=== PATIENT | male | born 1960 | race Caucasian/White ===

== ENCOUNTER 2022-01-18 08:20 | Day surgery (SDC) | payer MEDICARE ==
[2022-01-18] MEDS ORDERED: Lactated Ringers 1,000 ML IV SCH (09:00)
[2022-01-18] MEDS ORDERED: Lactated Ringers 1,000 ML IV ONE (09:12)
[2022-01-18] MEDS ORDERED: Sodium Chloride 3 ML UD NEBULES IH ONE (09:46)
[2022-01-18] MEDS ORDERED: Xopenex 1.25 MG/0.5 ML UD NEBULE IH ONE ×2 (09:46→09:59)
[2022-01-18] MEDS ORDERED: DIPRIVAN 200 MG/20 ML IV ONE ×2 (09:59→10:32)
[2022-01-18] MEDS ORDERED: Versed 2 MG/2 ML Injection ONE (09:59)
[2022-01-18] MEDS ORDERED: Xylocaine-Mpf 2% 5 Ml Vial ONE (09:59)
[2022-01-18] MEDS ORDERED: Sodium Chloride 3 ML UD NEBULES IH SCH (10:00)
[2022-01-18] MEDS ORDERED: GlucaGen 1 MG ONE (10:28)
[2022-01-18 11:37] VITALS: BP 125/80; PULSE 67; O2SAT 96
--- NOTE | 2022-01-18 13:38 | OP ---
SURGERY DATE/TIME: 01/18/2022 1015 PREOPERATIVE DIAGNOSES: 1) Abdominal pain. 2) Diarrhea. 3) Dysphagia. 4) Change in bowel movements. POSTOPERATIVE DIAGNOSES: 1) Grade II/IV gastroesophageal reflux disease. 2) Mild antritis. 3) Moderate internal hemorrhoids. 4) Moderate sigmoid diverticulosis. 5) Rectal polyp 8 mm. PROCEDURES: 1) EGD with cold biopsy of antrum. 2) Colonoscopy complete to cecum. 3) Hot polypectomy of rectal polyp. SURGEON: Otis Quintana M.D. CIGARETTE CATCHER: Joelle Butler, medical student III. ANESTHESIA: MAC. COMPLICATIONS: None. CONDITION: Stable. INDICATION: A patient with above indications. DESCRIPTION OF PROCEDURE: Patient taken to endoscopy. Left lateral decubitus position. Scope introduced. Pharyngoesophageal junction satisfactory. Esophagus normal down to gastroesophageal junction, grade II/IV gastroesophageal reflux disease. No hiatal hernia. Fundus, body normal. Antrum mild antritis. Press Manager cold biopsy. Pylorus. duodenal bulb, second portion satisfactory. The scope withdrawn looped upon itself. No hiatal hernia. Anal digital examination satisfactory. Prostate satisfactory. Scope advanced to the cecum. Moderate internal hemorrhoids. Rectum was normal. Sigmoid moderate diverticulosis. Scope advanced to the cecum. Base of the cecum satisfactory. Appendiceal orifice not seen. Ileocecal valve satisfactory. There was an excellent bowel prep. Ascending, hepatic, transverse, splenic, descending, sigmoid, rectum. Upper rectum 8 mm polyp taken with hot biopsy forceps to extinction. Rectum, anus moderate internal hemorrhoids. The patient tolerated the procedure satisfactorily. Findings discussed with the family in the waiting room. Follow up in five years.
[2022-01-18 15:29] LABS: 027 TOX PROD PRESUMPTIVE NEGATIVE (NEGATIVE); TOXIGENIC C. DIFF ORG NEGATIVE (NEGATIVE)
== END 2022-01-18 11:40 | disposition home or self-care (01) ==
LOC: SDC 08:20
PROVIDERS: ATTEND Surgery
DX: K21.9 Gastro-esophageal reflux disease without esophagitis (principal); R10.84 Generalized abdominal pain; R19.7 Diarrhea, unspecified; R13.10 Dysphagia, unspecified; R19.4 Change in bowel habit; K29.60 Other gastritis without bleeding; K64.8 Other hemorrhoids; K57.30 Diverticulosis of large intestine without perforation or abscess without bleeding; K62.1 Rectal polyp
CPT/HCPCS: 87045; 87046; 87493; 94640; J1610; J2250; J2704; A9270-GY

== ENCOUNTER 2022-03-01 07:56 | Observation (INO) | payer MEDICARE ==
--- NOTE | 2022-02-28 11:53 | HP ---
DATE OF SURGERY: 03/01/2022 HISTORY OF PRESENT ILLNESS: The patient is a 61-year-old who presented with complaints of upper bilateral abdominal pain. The patient recently had seen us for endoscopy and we had done EGD and colonoscopy on the patient. The patient also was worked up for gallbladder. Incidentally looks like the patient had a HIDA scan of 22%. He is having some postprandial upper abdominal pain. He was taking some omeprazole for the aches and pains but was not helping much. He desires removal of his gallbladder at this time. PAST MEDICAL HISTORY: Benign prostatic hypertrophy, reflux. PAST SURGICAL HISTORY: Inguinal hernia repair. Skin cancer lesion removed. UroLift. ALLERGIES: NKDA. MEDICATIONS: Tamsulosin, omeprazole. FAMILY HISTORY: Brain cancer. Lung cancer. SOCIAL HISTORY: Former smoker, denies alcohol. REVIEW OF SYSTEMS: CONSTITUTIONAL: Denies fever or chills. CHEST: Denies shortness of breath. CVS: Denies chest pain. ABDOMEN: Reports upper abdominal pain. PHYSICAL EXAMINATION: GENERAL: No acute distress. CHEST: Nonlabored. No shortness of breath. CVS: Regular rate and rhythm. ABDOMEN: Soft, upper abdominal pain. IMPRESSION: Biliary dyskinesia. PLAN: Laparoscopic cholecystectomy with Dr. Otis Quintana. As dictated by Shelby Jalloh NP.
[~2022-03-01 07:56] MED LIST: Sensorcaine 0.25% 10 ML ONE
[2022-03-01] MEDS ORDERED: MEFOXIN 2 GM PREMIX** 2 GM/50 ML ML IV SCH (08:00)
[2022-03-01] MEDS ORDERED: Lactated Ringers 1,000 ML IV SCH (08:00)
[2022-03-01] MEDS ORDERED: Versed 2 MG/2 ML Injection IV PRN (08:16)
[2022-03-01] MEDS ORDERED: Pepcid 20 MG VIAL IV ONE (08:16)
[2022-03-01] MEDS ORDERED: Reglan 10 MG/2 ML IV ONE (08:16)
[2022-03-01] MEDS ORDERED: Zemuron 100 MG/10 ML ONE (08:35)
[2022-03-01] MEDS ORDERED: OFIRMEV 100 ML IV ONE (08:35)
[2022-03-01] MEDS ORDERED: Decadron 4 MG INJ ONE (08:35)
[2022-03-01] MEDS ORDERED: Zofran 4 MG/2 ML VIAL ONE (08:35)
[2022-03-01] MEDS ORDERED: Xylocaine-Mpf 2% 5 Ml Vial ONE (08:35)
[2022-03-01] MEDS ORDERED: Quelicin Fliptop 200 MG/10 ML ONE (08:35)
[2022-03-01] MEDS ORDERED: Pre-Attached Lta Kit TP ONE (08:35)
[2022-03-01] MEDS ORDERED: BRIDION 200MG/2ML IV ONE (08:35)
[2022-03-01] MEDS ORDERED: SUBLIMAZE 100 MCG/2 ML ONE ×2 (08:37→10:15)
[2022-03-01] MEDS ORDERED: ATROPINE SULFATE 1MG ONE (09:10)
[2022-03-01] MEDS ORDERED: APRESOLINE 20 MG/ML INJ ONE (09:29)
[2022-03-01] MEDS ORDERED: Zofran 4 MG/2 ML VIAL IV PRN (09:51)
[2022-03-01] MEDS ORDERED: DEMEROL 50 MG ONE (10:29)
[2022-03-01 11:05] LABS: INFLUENZA A NEGATIVE (NEGATIVE); INFLUENZA B NEGATIVE (NEGATIVE); RESPIRATORY SYNCTIAL VIRUS NEGATIVE (Negative); SARS-CoV-2 Xpert Express NEGATIVE (NEGATIVE)
--- NOTE | 2022-03-01 11:21 | OP ---
SURGERY DATE/TIME: 03/01/2022 0848 PREOPERATIVE DIAGNOSIS: Gallbladder dyskinesia. POSTOPERATIVE DIAGNOSIS: Gallbladder dyskinesia. PROCEDURE: Laparoscopic cholecystectomy. SURGEON: Dr. Otis Quintana. ANESTHESIA: General endotracheal tube. COMPLICATIONS: None. CONDITION: Stable. INDICATIONS: The patient has symptomatic gallbladder disease, had a HIDA scan of 0%. He was referred by Dr. Poole, Family Practice attending at [facility]. She desired to have cholecystectomy. She was scheduled here at [facility]. DESCRIPTION OF PROCEDURE AND FINDINGS: Taken to surgery. General anesthetic, routine prep and drape. Veress needle inserted. Opening pressure of 1, insufflating pressure 14. Four - 5's. Cystic duct defined. Cystic artery defined. About custodial up the back wall of the gallbladder was detection of the residual mesentery and the liver bed. At this point there was a little bit of an ooze. It was clipped. It seemed like it was intraparenchymal. Surgicel was placed. The gallbladder rolled up. The Surgicel was packed once and it still had some oozing. At this time the gallbladder was taken off the upper edge and it was left packed with Surgicel and a Ray-Ludivina. A 5 port had been changed to 10-11 port to manage this in the epigastrium. After four minutes on the clock, the Ray-Ludivina was removed. The original Surgicel was removed. It was basically dry at this point although it certainly was not stirred up. Two hemostatic agents were used. A fluffy powdered sheet laying on the top edge of the liver and a larger brown of Surgicel laying on the top edge of the liver was packed in and then Surgicel double layer was very nicely laid on top of this and the liver edge brought down. This was watched for two minutes and was totally hemostatic. Hole closure device was used on the epigastric hole. Skin closed with 4-0 Vicryl and Steri-Strips. The patient was admitted for 24 hours because of the liver parenchymal oozing that had occurred although it was stopped. I do not want him to have excessive activity. I did want him to be monitored for a period of time. Serial hemoglobin have been ordered. We would expect to discharge him tomorrow morning.
[2022-03-01] MEDS: MORPHINE SULFATE 2 MG INJ IV PRN ×3 (11:37→21:29)
[2022-03-01] MEDS: Sodium Chloride 0.9% 1000 ML 1,000 ML IV SCH ×2 (11:42→21:19)
[2022-03-01] MEDS ORDERED: MELOXICAM PO PRN (12:58)
[2022-03-01] MEDS ORDERED: SILDENAFIL CITRATE 50 MG PO PRN (12:58)
[2022-03-01] MEDS ORDERED: MEDICATION INTERVENTION MC SCH ×2 (13:15)
[2022-03-01 14:04] LABS: Hematocrit 44.8 % (42-50); Mean Cell Volume 91.2 fL (78-100); Mean Corpuscular Hemoglobin 30.5 pg (26-32); Mean Corpuscular Hgb Concent. 33.5 g/dL (32-36); Mean Platelet Volume 10.7 fL (7.5-11.0); Platelet Count 190 x10^3/uL (150-450); Red Blood Count 4.91 x10^6/uL (4.1-5.6); Red Cell Distribution Width 12.9 % (11.5-14.0); White Blood Count 10.7 x10^3/uL (4.0-10.5)
[2022-03-01] MEDS: Flomax 0.4 MG PO SCH (14:28)
[2022-03-01] MEDS: THERAGRAN MULTIVITAMIN PO SCH (14:28)
[2022-03-01] MEDS: Protonix 40MG Tablet PO SCH ×2 (14:28→21:01)
[2022-03-01] MEDS: CLARITIN 10 MG PO SCH (14:28)
[2022-03-01] MEDS: NORCO 5/325 MG PO PRN (19:18)
[2022-03-01 20:09] LABS: Hematocrit 43.2 % (42-50); Hemoglobin 14.6 g/dL (12.5-18.0); Mean Cell Volume 91.3 fL (78-100); Mean Corpuscular Hemoglobin 30.9 pg (26-32); Mean Corpuscular Hgb Concent. 33.8 g/dL (32-36); Mean Platelet Volume 10.8 fL (7.5-11.0); Platelet Count 207 x10^3/uL (150-450); Red Blood Count 4.73 x10^6/uL (4.1-5.6); Red Cell Distribution Width 13.2 % (11.5-14.0); White Blood Count 12.6 x10^3/uL (4.0-10.5)
[2022-03-01] MEDS ORDERED: NON-FORMULARY ITEM (Omeprazole 20 Mg [Prilosec 20 Mg] 20 MG Capsule.Dr) PO SCH (22:00)
[2022-03-02] MEDS: NORCO 5/325 MG PO PRN ×2 (02:49→06:37)
[2022-03-02 05:28] LABS: ANION GAP 8.4 MEQ/L (5-15); BLOOD UREA NITROGEN 9 mg/dL (9-20); CHLORIDE 104 mmol/L (98-107); Calcium 8.4 mg/dL (8.4-10.2); Carbon Dioxide 28 mmol/L (22-30); Creatinine 1 0.64 mg/dL (0.66-1.25); EST GLOMERULAR FILTRATION RATE > 60.0 ML/MIN; Glucose 153 mg/dL (74-106); Potassium 3.8 mmol/L (3.5-5.1); SODIUM 137 mmol/L (137-145)
[2022-03-02 06:17] LABS: Hematocrit 39.1 % (42-50); Hemoglobin 13.1 g/dL (12.5-18.0); Mean Cell Volume 91.6 fL (78-100); Mean Corpuscular Hemoglobin 30.7 pg (26-32); Mean Corpuscular Hgb Concent. 33.5 g/dL (32-36); Mean Platelet Volume 11.4 fL (7.5-11.0); Platelet Count 175 x10^3/uL (150-450); Red Blood Count 4.27 x10^6/uL (4.1-5.6); Red Cell Distribution Width 13.6 % (11.5-14.0); White Blood Count 9.8 x10^3/uL (4.0-10.5)
[2022-03-02] MEDS: THERAGRAN MULTIVITAMIN PO SCH (09:13)
[2022-03-02] MEDS: CLARITIN 10 MG PO SCH (09:13)
[2022-03-02] MEDS: Flomax 0.4 MG PO SCH (09:13)
[2022-03-02] MEDS: Protonix 40MG Tablet PO SCH (09:13)
[2022-03-02] MEDS ORDERED: NORCO 5/325 MG PO PRN (09:54)
[2022-03-02] MEDS ORDERED: VITAMIN E 45 MG PO SCH (10:00)
[2022-03-02] MEDS ORDERED: [UNRECOGNIZED DRUG - OTHER] PO SCH (10:00)
[2022-03-02] MEDS ORDERED: NON-FORMULARY ITEM (Cetirizine Hcl [Zyrtec] 10 MG Capsule) PO SCH (10:00)
[2022-03-02] MEDS ORDERED: MULTIVIT WITH IRON MINERALS PO SCH (10:00)
[2022-03-02 11:17] VITALS: BP 127/76; PULSE 85; O2SAT 93
== END 2022-03-02 12:15 | disposition home or self-care (01) ==
LOC: SDC 07:56 → MED SURG 11:05
PROVIDERS: ADMIT Surgery; ATTEND Surgery
DX: K82.8 Other specified diseases of gallbladder (principal); Z80.1 Family history of malignant neoplasm of trachea, bronchus and lung; Z80.8 Family history of malignant neoplasm of other organs or systems; Z85.828 Personal history of other malignant neoplasm of skin
CPT/HCPCS: 00790; 0241U; 36415; 47562; 80048; 85027; 94760; G0378; J0330; J0360; J0461; J0694; J1100; J2175; J2250; J2270; J2405; J3010; A9270-GY